=== PATIENT | female | born 1995 | race African-American/Black ===

== ENCOUNTER 2017-01-22 17:00 | Emergency (ER) | payer OTHER ==
[~2017-01-22] VITALS: Ht 149.9 cm; Wt 46.4 kg
[~2017-01-22 17:00] MED LIST: CITRATE OF MAG296 ML PO; FLEXERIL10 MG PO; HYDROCODON-ACE1 EAC7 PO; LAMOTRIGINE150 MG PO; LORTAB 5-325 M1 EACH PO; METFORMIN HCL500 M1 PO; METFORMIN HCL500 MG PO; MOTRIN800 MG PO; PERCOCET 5/31 TABLET PO; PREDNISONE10 MG PO; PRILOSEC40 MG PO; PROMETHAZINE HC25 M1 PO; SEROQUEL12.5 MG PO; VYVANSE20 MG PO; VYVANSE30 MG PO; WELLBUTRIN75 MG PO
[2017-01-22 19:14] VITALS: BP 110/70
== END 2017-01-22 19:15 | disposition home or self-care (01) ==
LOC: EME 17:00
DX: G43.909 Migraine, unspecified, not intractable, without status migrainosus (principal); R11.2 Nausea with vomiting, unspecified; E11.9 Type 2 diabetes mellitus without complications; E28.2 Polycystic ovarian syndrome; Z79.84 Long term (current) use of oral hypoglycemic drugs; F17.200 Nicotine dependence, unspecified, uncomplicated
CPT/HCPCS: 99281; 99284; J1885

== ENCOUNTER 2017-02-01 15:13 | Emergency (ER) | payer OTHER ==
[~2017-02-01] VITALS: Ht 149.9 cm; Wt 45.4 kg
[2017-02-01] MEDS ORDERED: METFORMIN HCL500 MG PO (15:19)
[2017-02-01 15:57] LABS: ADD MIUA? YES; BILIRUBIN NEGATIVE; BLOOD NEGATIVE; COLOR YELLOW ((YELLOW)); GLUCOSE (STRIP) NEGATIVE; KETONES NEGATIVE; LEUKOCYTES LARGE; NITRITE NEGATIVE; PROTEIN (STRIP) NEGATIVE; SPECIFIC GRAVITY 1.004 (1.000-1.030); UROBILINOGEN 0.2 MG/DL (0.2-1.0)
[2017-02-01 15:58] LABS: HEMATOCRIT 39.9 % (36.0-46.0); MCHC 34.3 G/DL (30.0-36.0); MCV 87.3 FL (83-99); MEAN PLAT.VOLUME 10.5 uM^3 (9.5-12.4); PLATELET COUNT 306 K/uL (156-360); RBC DIS.WIDTH-CV 12.1 % (11.8-14.6); RBC DIS.WIDTH-SD 39.1 % (39-53); RED BLOOD COUNT 4.57 M/uL (3.80-5.20); WHITE BLOOD COUNT 6.3 K/uL (4.1-10.2)
[2017-02-01 16:05] LABS: BACTERIA RARE /HPF; CALCIUM OXALATE CRYSTALS 3+ /HPF; EPITHELIAL CELLS RARE /HPF; MUCUS NONE SEEN /LPF; RED BLOOD CELLS 0-5 /HPF (0-5); WHITE BLOOD CELLS 0-5 /HPF (0-5)
[2017-02-01 16:10] LABS: CHLORIDE 105 mEq/L (99-109); POTASSIUM 3.7 mEq/L (3.7-5.4); SODIUM 135 mEq/L (136-147)
[2017-02-01 16:12] LABS: GLUCOSE 83 mg/dL (70-99)
[2017-02-01 16:13] LABS: ANION GAP 8 MEQ/L (2-14)
[2017-02-01 16:14] LABS: TOTAL BILIRUBIN 0.1 mg/dL (0.0-1.0)
[2017-02-01 16:15] LABS: ALKALINE PHOSPHATASE 77 IU/L (3-129)
[2017-02-01 16:16] LABS: GFR ESTIMATE (CALCULATED) > 59 mL/min/
[2017-02-01 16:17] LABS: UREA NITROGEN (BUN) 7 mg/dL (9-23)
[2017-02-01 16:24] LABS: QUANTITATIVE HCG < 4.0 MIU/ML
[2017-02-01] MEDS ORDERED: ATARAX,VISTARIL50 MG PO (17:10)
[2017-02-01 17:47] VITALS: BP 119/85
== END 2017-02-01 17:48 | disposition home or self-care (01) ==
LOC: EME → EDBD 15:13 → EME 15:13
PROVIDERS: Nurse Practitioner Family
DX: F11.23 Opioid dependence with withdrawal (principal); F19.10 Other psychoactive substance abuse, uncomplicated; E11.9 Type 2 diabetes mellitus without complications; Z79.899 Other long term (current) drug therapy; Z79.84 Long term (current) use of oral hypoglycemic drugs; F17.200 Nicotine dependence, unspecified, uncomplicated
CPT/HCPCS: 80053; 81003; 84702; 85027; 87086; 99281; 99284; J2060; J7030